=== PATIENT | female | born 1980 | race African-American/Black ===

== ENCOUNTER 2018-07-10 16:06 | Emergency (ER) | payer OTHER ==
[~2018-07-10] VITALS: Ht 172.7 cm; Wt 95.7 kg
--- NOTE | 2018-07-10 16:30 | NUR ---
patient c/o lower lip swelling and tongue swelling today. no sob, difficulty breahting. vss
[2018-07-10] MEDS ORDERED: predniSONE 10 MG TABLET PO ONE (17:00)
[2018-07-10] MEDS ORDERED: FAMOTIDINE (20 MG) 20 MG TABLET PO ONE (17:00)
[2018-07-10] MEDS ORDERED: diphenhydrAMINE HCL 50 MG CAPSULE PO ONE (17:00)
[2018-07-10] MEDS ORDERED: diphenhydrAMINE HCL 50 MG CAPSULE ONE (17:12)
[2018-07-10] MEDS ORDERED: FAMOTIDINE (20 MG) 20 MG TABLET ONE (17:12)
[2018-07-10] MEDS ORDERED: predniSONE 20 MG TABLET ONE (17:12)
[2018-07-10 18:24] VITALS: BP 110/75
--- NOTE | 2018-07-10 18:25 | NUR ---
Patient discharged to home in stable condition. Written and verbal after care instructions given. Patient verbalizes understanding of instruction. patient friend driving patient home.
== END 2018-07-10 18:25 | disposition home or self-care (01) ==
LOC: ER 16:10
DX: T78.3XXA Angioneurotic edema, initial encounter (principal); J45.909 Unspecified asthma, uncomplicated; F90.9 Attention-deficit hyperactivity disorder, unspecified type; Z60.2 Problems related to living alone
CPT/HCPCS: 99284; J7512; Q0163